=== PATIENT | female | born 1980 | race Caucasian/White ===

== ENCOUNTER 2023-05-08 14:39 | Day surgery (SDC) | payer OTHER ==
[2023-05-08] MEDS: IRON SUCROSE COMPLEX 200 MG in SODIUM CHLORIDE 100 ML IVPB ONE (15:00)
[2023-05-08 15:07] VITALS: BP 123/59; PULSE 91; RESP 16; TEMP 98
== END 2023-05-08 16:00 | disposition home or self-care (01) ==
LOC: JONCNONCHE 14:39 → J7W 14:40 → JONCNONCHE 16:00
PROVIDERS: ATTEND Internal Medicine Hematology & Oncology
PROC: 3E033GC Introduction of Other Therapeutic Substance into Peripheral Vein, Percutaneous Approach (ICD-10-PCS; principal; 2023-05-08)
DX: D50.9 Iron deficiency anemia, unspecified (principal)
CPT/HCPCS: 96365

== ENCOUNTER 2023-05-15 15:15 | Day surgery (SDC) | payer OTHER ==
[2023-05-15 15:35] VITALS: RESP 16; TEMP 97.8
[2023-05-15] MEDS: IRON SUCROSE INJECTION 200 MG in SODIUM CHLORIDE 100 ML IVPB ONE (15:36)
[2023-05-15 16:32] VITALS: BP 111/64; PULSE 72
== END 2023-05-15 16:30 | disposition home or self-care (01) ==
LOC: J7W 15:15 → JONCNONCHE 15:15
PROVIDERS: ATTEND Internal Medicine Hematology & Oncology
PROC: 3E033GC Introduction of Other Therapeutic Substance into Peripheral Vein, Percutaneous Approach (ICD-10-PCS; principal; 2023-05-15)
DX: D50.9 Iron deficiency anemia, unspecified (principal)
CPT/HCPCS: 96365; J1756

== ENCOUNTER 2023-05-22 15:04 | Day surgery (SDC) | payer OTHER ==
[2023-05-22] MEDS: IRON SUCROSE COMPLEX 200 MG in SODIUM CHLORIDE 100 ML IVPB ONE (15:35)
[2023-05-22 15:52] VITALS: RESP 18; TEMP 98.1
[2023-05-22 16:03] VITALS: BP 111/71; PULSE 79
== END 2023-05-22 16:30 | disposition home or self-care (01) ==
LOC: JONCNONCHE 15:04 → J7W 15:05 → JONCNONCHE 16:30
PROVIDERS: ATTEND Internal Medicine Hematology & Oncology
PROC: 3E033GC Introduction of Other Therapeutic Substance into Peripheral Vein, Percutaneous Approach (ICD-10-PCS; principal; 2023-05-22)
DX: D50.9 Iron deficiency anemia, unspecified (principal)
CPT/HCPCS: 96365

== ENCOUNTER 2023-05-29 14:27 | Day surgery (SDC) | payer OTHER ==
[2023-05-29] MEDS: IRON SUCROSE COMPLEX 200 MG in SODIUM CHLORIDE 100 ML IVPB ONE (14:42)
[2023-05-29 17:43] VITALS: BP 116/73; PULSE 87; RESP 18; TEMP 98
== END 2023-05-29 15:40 | disposition home or self-care (01) ==
LOC: JONCNONCHE 14:27 → J7W 14:27 → JONCNONCHE 15:40
PROVIDERS: ATTEND Internal Medicine Hematology & Oncology
PROC: 3E033GC Introduction of Other Therapeutic Substance into Peripheral Vein, Percutaneous Approach (ICD-10-PCS; principal; 2023-05-29)
DX: D50.9 Iron deficiency anemia, unspecified (principal)
CPT/HCPCS: 96365

== ENCOUNTER 2023-06-12 16:42 | Day surgery (SDC) | payer OTHER ==
[2023-06-12] MEDS: IRON SUCROSE INJECTION 200 MG in SODIUM CHLORIDE 100 ML IVPB ONE (15:15)
[~2023-06-12 16:42] MED LIST: IRON SUCROSE COMPLEX 200 MG in SODIUM CHLORIDE 100 ML IVPB ONE
[2023-06-12 17:14] VITALS: TEMP 97.7
[2023-06-12 17:16] VITALS: BP 108/70; PULSE 70; RESP 16
== END 2023-06-12 17:00 | disposition home or self-care (01) ==
LOC: JONCNONCHE 16:42 → J7W 16:44 → JONCNONCHE 17:00
PROVIDERS: ATTEND Internal Medicine Hematology & Oncology
PROC: 3E033GC Introduction of Other Therapeutic Substance into Peripheral Vein, Percutaneous Approach (ICD-10-PCS; principal; 2023-06-12)
DX: D50.9 Iron deficiency anemia, unspecified (principal)
CPT/HCPCS: 96365; J1756

== ENCOUNTER 2024-06-03 10:03 | Day surgery (SDC) | payer OTHER ==
[2024-06-03] MEDS: FERRIC DERISOMALTOSE IVPB ONE (11:03)
[2024-06-03] MEDS: SODIUM CHLORIDE IVPB ONE (11:03)
[2024-06-03 14:34] VITALS: BP 113/63; PULSE 96; RESP 20; TEMP 98.7
== END 2024-06-03 12:15 | disposition home or self-care (01) ==
LOC: JONCNONCHE 10:03
PROVIDERS: ATTEND Nurse Practitioner Family
PROC: 3E033GC Introduction of Other Therapeutic Substance into Peripheral Vein, Percutaneous Approach (ICD-10-PCS; principal; 2024-06-03)
DX: D50.9 Iron deficiency anemia, unspecified (principal)
CPT/HCPCS: 96365; J1437